=== PATIENT | male | born 1950 | race Caucasian/White ===

== ENCOUNTER → 2019-01-19 09:03 | Outpatient (CLI) | payer OTHER, SELFPAY ==
--- NOTE | 2019-01-19 | DI.RAD.S_ITS ---
PROCEDURE: XR CHEST 2V INDICATIONS: Recurent UTI'S/STAT labs/COUGH TECHNIQUE: 2 views of the chest were acquired. COMPARISON: None. FINDINGS: Surgical changes and devices: None. Lungs and pleura: Lungs are clear. No pleural effusions or pneumothorax. Mediastinum: Mediastinal contours are normal. Heart size is normal. Bones and chest wall: No suspicious bony abnormalities. Soft tissues appear unremarkable. IMPRESSION: No evidence acute pulmonary process. Dictated by: Florin Solis M.D. on 01/19/2019 at 16:59 Approved by: Florin Solis M.D. on 01/19/2019 at 16:59
[2019-01-19 10:32] LABS: BUN Creatinine Ratio 12.2 (6-22); Blood Urea Nitrogen 11 mg/dL (9-20); Estimated Glomerular Filt Rate > 60.0 mL/min (>60)
--- NOTE | 2019-01-19 10:36 | DI.CT.S_ITS ---
PROCEDURE: CT ABDOMEN PELVIS WO/W CON INDICATIONS: Recurent UTI'S TECHNIQUE: Optional 5 mm thick noncontrast images acquired from the diaphragm to the symphysis pubis. After the administration of intravenous contrast, 5 mm thick images acquired from the diaphragm to the symphysis pubis after a 10-minute delay. 2 mm thick coronal and sagittal reformats were then performed of the kidneys and ureters. For radiation dose reduction, the following was used: automated exposure control, adjustment of mA and/or kV according to patient size. COMPARISON: [facility], CT, KIDNEY/ URETER/BLADDER, 03/10/2015, 13:16. FINDINGS: Image quality: Excellent. Lung bases: Lung bases are clear. Heart size is normal. Urinary system: Right kidney: There are approximately 3 stones in the lower pole, the largest of which measures 4 mm. There is no obstructing stone. There is no hydronephrosis. No solid mass. Multiple cysts. Left kidney: 2 mm middle pole stone, 7 mm lower pole stone. No hydronephrosis. No solid renal masses. Multiple cysts. Opacified portions of both ureters demonstrate normal caliber. Enlarged prostate. Bladder wall thickening. No calcified bladder stones. Other solid organs: Liver is normal in size and enhancement. Gallbladder is surgically absent.. Biliary system is non dilated. Pancreas enhances normally. Spleen is normal in size and enhancement. No adrenal nodules. Peritoneum and bowel: Bowel loops demonstrate normal wall thickness and caliber. No free fluid or air. Nodes and vessels: No retroperitoneal or mesenteric adenopathy by size criteria. Aorta and inferior vena cava are normal in size. Multiple pelvic varicosities, right greater than left, of unknown etiology. 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 This was also present on the prior study. Abdominal wall: No ventral hernias. Pelvis: No pathologic free pelvic fluid. No inguinal hernias or adenopathy. Bones: No suspicious bony lesions. No vertebral body compression fractures. IMPRESSION: 1. There are bilateral nonobstructing renal stones. There is no hydronephrosis or hydroureter or ureteral stone. 2. Enlarged prostate, diffuse bladder wall thickening. 3. 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 Dictated by: Florin Solis M.D. on 01/19/2019 at 11:26 Approved by: Florin Solis M.D. on 01/19/2019 at 11:45
== END ==
PROVIDERS: PCP Family Medicine; Visit Provider Student in an Organized Health Care Education/Training Program
DX: N39.0 Urinary tract infection, site not specified (principal); R05 Cough; I86.2 Pelvic varices; N20.0 Calculus of kidney; N28.1 Cyst of kidney, acquired; N40.0 Benign prostatic hyperplasia without lower urinary tract symptoms; Z90.49 Acquired absence of other specified parts of digestive tract
CPT/HCPCS: 36415; 71046; 74178; 82565; 84520; Q9967

== ENCOUNTER → 2019-05-21 14:16 | Outpatient (CLI) | payer MEDICARE, OTHER, SELFPAY ==
--- NOTE | 2019-05-21 14:27 | DI.CT.S_ITS ---
PROCEDURE: CT ABDOMEN PELVIS WO CON INDICATIONS: Calculus of kidney TECHNIQUE: Noncontrast 5 mm thick sections acquired from the diaphragms to the symphysis. 5 mm thick coronal and sagittal reformats were then performed. For radiation dose reduction, the following was used: automated exposure control, adjustment of mA and/or kV according to patient size. COMPARISON: [facility], CT, CT ABDOMEN PELVIS WO/W CON, 01/19/2019, 10:36. FINDINGS: Image quality: Excellent. Lung bases: Lung bases are clear. Heart size is normal. Urinary system: Both kidneys are normal in size. There are bilateral lower third renal collecting system kidney stones, one in each kidney, measuring 2 x 6 mm on the right and 8 mm in maximal diameter on the left, neither of which appear obstructed. At the middle third level of each kidney there is a punctate calculus laterally, one in each kidney, also nonobstructive. No hydronephrosis or perinephric fat stranding. Both ureters appear non-dilated throughout their expected courses. Bladder wall thickness is normal; no calcified bladder stones. The previously identified bladder calculus from CT scanning 01/19/19 has been removed. Other solid organs: Liver is normal in size. Gallbladder is surgically absent. Pancreas is normal in contours. Spleen is normal in size. No adrenal nodules. Peritoneum and bowel: Unenhanced bowel loops demonstrate normal wall thickness and caliber. No free fluid or air. Nodes and vessels: No retroperitoneal or mesenteric adenopathy by size criteria. Aorta and inferior vena cava are normal in caliber. Abdominal wall: No ventral hernias. Pelvis: No free pelvic fluid. No inguinal hernias or adenopathy. Bones: No suspicious bony lesions. No vertebral body compression fractures. IMPRESSION: 1. Successful removal of a bladder calculus, between the [address]. No residual bladder calculus remains. 2. Nonobstructive lower pole bilateral renal calculi, the largest of which measures 8 mm lower third collecting system left kidney. 3. Nonobstructive middle third bilateral renal calculi, each punctate, measuring only approximately 1 mm diameter. No ureteral stone suspected. Dictated by: Prosper Hernandez M.D. on 05/21/2019 at 15:49 Approved by: Prosper Hernandez M.D. on 05/21/2019 at 15:55
== END ==
PROVIDERS: PCP Family Medicine; Referring Provider Urology; Visit Provider Urology
DX: N20.0 Calculus of kidney (principal); Z90.49 Acquired absence of other specified parts of digestive tract
CPT/HCPCS: 74176

== ENCOUNTER 2019-07-12 17:19 | Emergency (ER) | payer MEDICARE, OTHER, SELFPAY ==
[2019-07-12 17:24] VITALS: BP 149/70; PULSE 75; RESP 16; TEMP 36.3; O2SAT 98
--- NOTE | 2019-07-12 17:27 | DI.RAD.S_ITS ---
PROCEDURE: XR FINGER LT MIN 2V INDICATIONS: injury left thumb, fan blade injury TECHNIQUE: AP hand, 2 views of the 1st finger(s) acquired. COMPARISON: None. FINDINGS: Bones: No fractures or dislocations. No suspicious bony lesions. Soft tissues: Soft tissue injury of the thumb and swelling can be seen, with bandaging material. IMPRESSION: Soft tissue swelling is seen, without a definite acute abnormality seen by plain film. If there is point tenderness (or other clinical suspicion for a fracture not seen on these images) then a dedicated CT or a short-term followup plain film series could be considered for further evaluation, as clinically appropriate. Dictated by: Michael Pantoja M.D. on 07/12/2019 at 16:50 Approved by: Michael Pantoja M.D. on 07/12/2019 at 16:51
--- NOTE | 2019-07-12 18:32 | ED.UPPEXIN ---
HPI - Extremity Injury (Upper) General Chief Complaint: Extremity Injury, Upper Stated Complaint: Cut Left Thumb Time Seen by Provider: 07/12/19 18:10 Source: patient Mode of arrival: Ambulatory Limitations: no limitations History of Present Illness HPI narrative: 68M nonsmoker with history of kidney stones presents with the chief complaint of an accidental injury to his left thumb few hours ago. He was working on a project at home and reached in and was lacerated by moving parts inside the machine. He had active bleeding on scene but has full range of motion and sensation.He denies any history of the same and is otherwise well and free of complaint. Patient will receive updated tetanus tonight. complaint: injury to: left Onset (ago): hour(s) Other Extremity Injury: Left: fingers Other injuries: none Handedness: right Place: home Severity: moderate Relieving factors: rest Exacerbating factors: movement of extremity Context: laceration Associated symptoms: denies other symptoms Treatments prior to arrival: bandage Related Data Previous Rx's Medication Instructions Recorded cephalexin [Keflex] 500 mg PO QID #28 cap 07/12/19 Allergies Allergy/AdvReac Type Severity Reaction Status Date / Time No Known Drug Allergies Allergy Verified 07/12/19 17:23 Review of Systems Constitutional Constitutional: Denies chills, Denies fatigue, Denies fever(s), Denies frequent falls, Denies lethargy and Denies weakness Eyes Eyes: Denies change in vision, Denies eye discharge, Denies irritation and Denies loss of vision ENT Ears, Nose, Mouth, and Throat: Denies change in voice, Denies dizziness, Denies neck pain, Denies sore throat and Denies throat swelling Cardiovascular Cardiovascular: Denies chest pain, Denies irregular heart rhythm, Denies lightheadedness, Denies palpitations, Denies dyspnea, Denies dyspnea on exertion and Denies orthopnea Respiratory Respiratory: Denies cough, Denies dyspnea, Denies dyspnea on exertion and Denies wheezing Gastrointestinal Gastrointestinal: Denies abdominal pain, Denies change in bowel habits, Denies diarrhea, Denies nausea and Denies vomiting Genitourinary Genitourinary: Denies hematuria, Denies flank pain, Denies urinary incontinence and Denies urinary urgency Musculoskeletal Musculoskeletal: Denies back pain, Denies muscle weakness, Denies neck pain, Denies numbness and Denies tingling Integumentary/Breasts Skin/Breast: Denies pruritus, Denies erythema, Denies rash and Reports wounds Neurologic Neurologic: Denies behavioral changes, Denies confusion, Denies dizziness, Denies frequent falls, Denies loss of vision, Denies numbness, Denies tingling and Denies weakness Psychiatric Psychiatric: Denies anxiety, Denies behavioral changes, Denies confusion, Denies depression, Denies homicidal ideation and Denies suicidal ideation Endocrine Endocrine: Denies fatigue, Denies flushing and Denies palpitations Hematologic/Lymphatic Hematologic/Lymphatic: Denies easy bruising Allergic/Immunologic Allergic/Immunologic: Denies urticaria, Denies throat swelling and Denies wheezing Patient History Social History Smoking Status: Never smoker Smoking Status: Never smoker alcohol intake frequency: a few times a week Substance Use Type: does not use Exam Narrative Exam Narrative: GEN: AOx3 and in mild distress EYES: Pupils are equal, round, and reactive to light and accommodation. Extraoccular muscles are intact bilaterally. There is no subconjunctival hemorrhage or exudate. CHEST: Lungs are clear to auscultation bilaterally and free of wheezes, rales, or rhonchi. Heart rate is regular rhythm, there are no murmurs, clicks, rubs, or gallops. There is no chest wall tenderness. ABD: Abdomen is soft and nontender. There is no guarding or rebound. Bowel sounds are normal in all 4 quadrants. There is no mass or organomegaly. EXT: Left thumb with irregular laceration, stellate with minimal active bleeding and no obvious tissue loss. Small tip of nail involved but no active bleeding here and no suspicion of nail bed or nail fold injury. Full painless ROM of all extremities with no loss of sensation or strength. SKIN: Warm, pink, and dry. No erythema or rash Initial Vital Signs Initial Vital Signs: Vital Signs Temperature 97.3 F L 07/12/19 17:24 Pulse Rate 75 07/12/19 17:24 Respiratory Rate 16 07/12/19 17:24 Blood Pressure 149/70 H 07/12/19 17:24 Pulse Oximetry 98 07/12/19 17:24 Procedures Laceration Repair Laceration 1: Site: hand Side (If applicable): left Size (cm): 3 Description: stellate, flap, irregular and clean Depth: simple, single layer Pre-repair: wound explored and irrigated extensively Skin layer closed with: nylon Size (cm): 5-0 Number of sutures: 8 Technique: simple, interrupted Subcutaneous layer closed with: vicryl Size: 4-0 Number of sutures: 2 Technique: simple, interrupted Course Orders Ordered: Discontinued Medications Cefazolin Sodium (Keflex 250 Mg Prepack) 1 bottle MISC SEEINSTR ONE Stop: 07/12/19 18:48 Last Admin: 07/12/19 20:51 Dose: 1 bottle Documented by: KADIE Lidocaine/Sodium Bicarbonate (Buffered Lidocaine 10 Ml Syr) 10 ml INJ NOW ONE Stop: 07/12/19 18:47 Last Admin: 07/12/19 20:50 Dose: 10 ml Documented by: KADIE Vital Signs Vital signs: Vital Signs - 8 hr 07/12/19 21:45 Pulse Rate 78 Respiratory Rate 16 Blood Pressure 138/70 Pulse Oximetry 97 MDM - Extremity Injury (Upper) Imaging Data Extremity x-ray #1: Radiologist's Impression: [address] [address] XRay Report Signed Patient: Abilio Castillo LMR#: [id number] : 2Acct:[id number] Age/Sex: 68 / MDate of Service: 07/12/19 Loc: ED Accession Number: [id number] Procedure: XR finger LT min 2V Ordering Provider: Devang Gomes MD PROCEDURE: XR FINGER LT MIN 2V INDICATIONS: injury left thumb, fan blade injury TECHNIQUE: AP hand, 2 views of the 1st finger(s) acquired. COMPARISON: None. FINDINGS: Bones: No fractures or dislocations. No suspicious bony lesions. Soft tissues: Soft tissue injury of the thumb and swelling can be seen, with bandaging material. IMPRESSION: Soft tissue swelling is seen, without a definite acute abnormality seen by plain film. If there is point tenderness (or other clinical suspicion for a fracture not seen on these images) then a dedicated CT or a short-term followup plain film series could be considered for further evaluation, as clinically appropriate. Dictated by: Michael Pantoja M.D. on 07/12/2019 at 16:50 Approved by: Michael Pantoja M.D. on 07/12/2019 at 16:51 Discharge Plan Departure Patient Disposition: Home Clinical Impression: Laceration of left thumb Qualifiers: Encounter type: initial encounter Damage to nail status: with damage Foreign body presence: without foreign body Qualified Code(s): S61.112A - Laceration without foreign body of left thumb with damage to nail, initial encounter Discharge Date/Time: 07/12/19 21:50 Instructions: DI for Laceration Repair -- Finger Activity Restrictions/Additional Instructions: Please keep the wound clean and dry to the best of your ability. Please monitor for signs of infection such as redness to the skin or increasing pain. Have the sutures removed by your doctor in about 7 days. If you are unable to get into your doctor, we would be happy to remove the sutures in that same timeframe. Prescriptions: New cephalexin [Keflex] 500 mg capsule 500 mg PO QID Qty: 28 RF: 0 Referrals: Ilan Kent MD [Primary Care Provider] -
[2019-07-12] MEDS: LIDO 1%/SOD BICARB 8.4% (10ML) 10 ML SYRINGE INJ (20:50)
[2019-07-12] MEDS: cephALEXin 250 MG PREPACK 1 BOTTLE MISC (20:51)
[2019-07-12 21:45] VITALS: BP 138/70; PULSE 78; RESP 16; O2SAT 97
== END 2019-07-12 21:50 | disposition home or self-care (01) ==
PROVIDERS: Emergency Provider Emergency Medicine; PCP Family Medicine
DX: S61.112A Laceration without foreign body of left thumb with damage to nail, initial encounter (principal); W31.9XXA Contact with unspecified machinery, initial encounter
CPT/HCPCS: 12002; 73140; 99283

== ENCOUNTER → 2021-03-29 16:29 | Outpatient (CLI) | payer MEDICARE, OTHER, SELFPAY ==
--- NOTE | 2021-03-29 | DI.MRI.S_ITS ---
PROCEDURE: MR SHOULDER RT WO CON INDICATIONS: ATROPHY OF DELTOID MUSCLE TECHNIQUE: Noncontrast oblique coronal T2 fast spin echo with fat saturation, oblique sagittal T1 spin echo and T2 fast spin echo with fat saturation, axial T1 spin echo and T2 fast spin echo with fat saturation through the shoulder. COMPARISON: None. FINDINGS: Image quality: Excellent. Rotator cuff: There is mild T2 signal elevation throughout the supraspinatus and infraspinatus tendons at the humeral insertion sites, indicating tendinopathy. Superimposed low-grade partial-thickness intrasubstance tearing of the anterior, mid, and posterior supraspinatus tendon at the humeral insertion site. Subscapularis, infraspinatus, and teres minor tendons are intact. No rotator cuff atrophy. Bones and bursae: No bone marrow contusions or fractures. Moderate acromioclavicular joint degeneration. The acromion demonstrates conventional anatomy, without an os acromiale. Moderate subacromial-subdeltoid or subcoracoid bursal fluid is present. Capsule and soft tissues: Labrum demonstrates multifocal regions of high T2 signal intensity within the anteroinferior labrum as well as the posterior inferior labrum. The long head of the biceps tendon demonstrates normal location and morphology. The rotator interval appears normal, without fibrosis. The coracohumeral ligament is normal in thickness. IMPRESSION: 1. Supraspinatus and infraspinatus tendinopathy. Superimposed low-grade partial-thickness tearing of the supraspinatus. No full-thickness rotator cuff tear. 2. Acromioclavicular joint osteoarthritis. 3. Subacromial bursitis. 4. Glenoid labral tearing. Dictated by: Aman Bhagat M.D. on 03/30/2021 at 8:25 Approved by: Aman Bhagat M.D. on 03/30/2021 at 8:27
== END ==
PROVIDERS: PCP Family Medicine; Referring Provider Family Medicine; Visit Provider Family Medicine
DX: M62.519 Muscle wasting and atrophy, not elsewhere classified, unspecified shoulder (principal); M75.111 Incomplete rotator cuff tear or rupture of right shoulder, not specified as traumatic; M75.51 Bursitis of right shoulder; M19.011 Primary osteoarthritis, right shoulder; S43.491A Other sprain of right shoulder joint, initial encounter
CPT/HCPCS: 73221

== ENCOUNTER → 2021-05-16 10:00 | Outpatient (CLI) | payer MEDICARE, OTHER, SELFPAY ==
--- NOTE | 2021-05-16 | DI.MRI.S_ITS ---
PROCEDURE: MR CERVICAL SPINE WO CON INDICATIONS: Cervicalgia TECHNIQUE: Noncontrast sagittal T1 spin echo and T2 fast spin echo, sagittal STIR, foraminal oblique sagittal T2 fast spin echo, and axial gradient echo or T2 fast spin echo through the cervical spine. COMPARISON: None. FINDINGS: Image quality: Excellent. Alignment and Curvature: There is normal bony alignment. Bone Marrow: Marrow demonstrates normal overall signal. Spinal Cord: Visualized spinal cord has normal size and signal. No cerebellar tonsillar herniation. Paraspinous Soft Tissues: No paravertebral masses. Prevertebral soft tissues are normal in thickness. C2-C3: No canal stenosis or foraminal stenosis. C3-C4: Disc bulge. No canal stenosis. Right uncovertebral joint hypertrophy with mild right foraminal narrowing. C4-C5: Disc bulge. No canal stenosis or foraminal stenosis. C5-C6: No canal stenosis. Left uncovertebral joint hypertrophy with mild left foraminal narrowing. C6-C7: Mild disc height loss. Diffuse posterior disc bulge. Central canal measures 1.0 cm. There is a relatively broad-based right foraminal disc protrusion which impinges on the right C7 nerve root in the foramen. The protrusion is high signal, and may be relatively acute. C7-T1: No canal stenosis or foraminal stenosis. IMPRESSION: 1. There is a relatively broad-based right foraminal disc protrusion at C6-C7, which may be acute. It results in severe foraminal narrowing and right C7 nerve root impingement. 2. Mild cervical spondylitic change. Dictated by: Florin Solis M.D. on 05/16/2021 at 11:48 Approved by: Florin Solis M.D. on 05/16/2021 at 11:54
== END ==
PROVIDERS: PCP Family Medicine; Referring Provider Family Medicine; Visit Provider Family Medicine
DX: M50.223 Other cervical disc displacement at C6-C7 level (principal)
CPT/HCPCS: 72141

== ENCOUNTER 2024-03-06 18:42 | Emergency (ER) | payer MEDICARE, OTHER, SELFPAY ==
[2024-03-06 18:50] VITALS: BP 148/67; PULSE 66; RESP 16; TEMP 36.2; O2SAT 96; BMI 25.7
[2024-03-06 19:05] LABS: Appearance Urine UA CLEAR; Bilirubin Urine UA NEGATIVE (NEGATIVE); Color Urine UA YELLOW; Glucose Urine UA NEGATIVE (Negative); Ketones Urine UA TRACE (NEGATIVE); Leukocyte Esterase Urine UA NEGATIVE (NEGATIVE); Nitrite Urine UA NEGATIVE (Negative); Occult Blood Urine UA 1+ (Negative); Protein Urine UA TRACE (Negative); Specific Gravity Urine UA 1.025 (1.000-1.035); pH Urine UA 6.5 (4.5-8.0)
[2024-03-06 19:21] LABS: Amorphous Sediment Urine 1+; Bacteria Urine Few (2-10); Calcium Oxalate Crystals Urine Many; Mucus Urine 1+ (Negative); RBC Urine 1-5/HPF (0-5/HPF); Squamous Epithelial Cell Urine None Seen (0-5/HPF); Urine Volume 10mL (spun); WBC Urine 0-1/HPF (0-5/HPF)
[2024-03-06 19:22] LABS: Culture Indicated Urine Cult Not Indicated
--- NOTE | 2024-03-06 19:56 | ED_ITS ---
HPI - Male Genitourinary General Chief complaint: Urogenital-Male Stated complaint: sent by PCP, abn labs, kidney Time Seen by Provider: 03/06/24 19:01 History of Present Illness HPI Narrative: 73yoM with PMH kidney stones presents for aching RLQ pain and nausea since 11am today. Saw his PCP on [facility], who told him he had no hernias and had trace blood in his urine. He was referred to the ED for evaluation of possible kidney stones. Given toradol in clinic before coming to the ED. Patient states that this feels different from when he last had a kidney stone. Related Data Previous Rx's Medication Instructions Recorded cephalexin 500 mg capsule (Keflex) 500 mg PO QID #28 caps 07/12/19 ondansetron 4 mg disintegrating 4 mg PO Q8H PRN nausea and 03/06/24 tablet vomiting #30 tabs Allergies Allergy/AdvReac Type Severity Reaction Status Date / Time No Known Drug Allergies Allergy Verified 07/12/19 17:23 Patient History Social History Smoking Status: Never smoker Smoking Status: Never smoker alcohol intake frequency: a few times a week Exam Initial Vital Signs Initial Vital Signs: Vital Signs Temperature 97.1 F L 03/06/24 18:50 Pulse Rate 66 03/06/24 18:50 Respiratory Rate 16 03/06/24 18:50 Blood Pressure 148/67 H 03/06/24 18:50 Pulse Oximetry 96 03/06/24 18:50 Oxygen Delivery Method Room Air 03/06/24 18:50 Const: Awake, alert, no acute distress, nontoxic appearing Cardiac: regular rate, regular rhythm RESP: unlabored, conversational without dyspnea GI: Soft,minimal RLQ tenderness to deep palpation without rebound or guarding Skin: Warm, Dry, intact, no rashes Neuro: AO x3, CN II-XII grossly intact, moves all extremities Course Orders Ordered: ED Orders 03/06/24 18:56 Urinalysis and Microscopic Stat 03/06/24 19:56 CT kidney ureter bladder (KUB) Stat 03/06/24 20:20 CBC Auto Diff [Complete Blood Count AUTO DIFF] Stat CMP [Comprehensive Metabolic Panel] Stat Discontinued Medications Morphine Sulfate (Morphine 4 Mg/Ml Inj) 4 mg IV NOW ONE Stop: 03/06/24 19:57 Last Admin: 03/06/24 20:12 Dose: 4 mg Documented By: PAT Ondansetron HCl (Ondansetron 4 Mg/2 Ml Inj) 4 mg IV NOW ONE Stop: 03/06/24 19:57 Last Admin: 03/06/24 20:12 Dose: 4 mg Documented By: PAT Vital Signs Vital signs: Vital Signs - 8 hr 03/06/24 18:50 03/06/24 20:15 03/06/24 20:16 Temperature 97.1 F L Pulse Rate 66 65 Respiratory Rate 16 18 Blood Pressure 148/67 H 139/75 Pulse Oximetry 96 97 Oxygen Delivery Method Room Air 03/06/24 20:22 03/06/24 21:18 Temperature 98.4 F Pulse Rate 62 66 Respiratory Rate 18 18 Blood Pressure 139/75 140/70 Pulse Oximetry 96 96 Oxygen Delivery Method Room Air Room Air MDM - Male Genitourinary Lab Data 03/06/24 20:20 03/06/24 20:20 Labs: Lab Results 03/06/24 03/06/24 Range/Units 18:56 20:20 WBC 5.8 (4.5-11.0) X10^3/uL RBC 4.80 (4.5-5.9) X10^6/uL Hgb 14.9 (13.5-17.5) g/dL Hct 43.6 (41-53) % MCV 90.8 (80-100) fL MCH 31.1 (26-34) PG MCHC 34.2 (30-36) % RDW 14.0 (11.6-14.8) % Plt Count 98 L (150-400) X10^3/uL Neut % (Auto) 66.0 (50-75) % Lymph % (Auto) 25.9 (25-40) % [place] % (Auto) 6.7 (3-14) % Eos % (Auto) 1.0 L (2-4) % Baso % (Auto) 0.4 (0-2) % Neut # (Auto) 3800 (7807-1994) /uL Lymph # (Auto) 1500 (6882-7702) /uL [place] # (Auto) 400 (0-900) /uL Eos # (Auto) 100 (0-450) /uL Baso # (Auto) 0 (0-100) /uL Sodium 133 L (137-145) mmol/L Potassium 4.4 (3.4-5.1) mmol/L Chloride 106 (98-107) mmol/L Carbon Dioxide 24 (22-32) mmol/L BUN 20 (9-20) mg/dL Creatinine 0.97 (0.66-1.25) mg/dL Estimated GFR > 60 (>60) mL/min BUN/Creatinine Ratio 20.6 (6-22) Glucose 112 H (80-110) mg/dL Calcium 9.3 (8.4-10.2) mg/dL Total Bilirubin 0.6 (0.2-1.3) mg/dL AST 30 (17-59) IU/L ALT 26 (<50) IU/L Alkaline Phosphatase 45 (38-126) U/L Total Protein 6.8 (6.3-8.2) g/dL Albumin 3.8 (3.5-5.0) g/dL Globulin 3.0 (1.7-4.1) g/dL Albumin/Globulin Ratio 1.3 (1.0-2.8) Urine Color Yellow Urine Appearance Clear Urine pH 6.5 (4.5-8.0) Ur Specific [place] 1.025 (1.000-1.035) Urine Protein Trace H (Negative) Urine Glucose (UA) Negative (Negative) g/dL Urine Ketones Trace H (NEGATIVE) Urine Occult Blood 1+ H (Negative) Urine Nitrate Negative (Negative) Urine Bilirubin Negative (NEGATIVE) Urine Urobilinogen 1.0 (0.2) E.U./dL Ur Leukocyte Esterase Negative (NEGATIVE) Urine RBC 1-5/hpf (0-5/HPF) Urine WBC 0-1/hpf (0-5/HPF) Ur Squamous Epith Cells None seen (0-5/HPF) Calcium Oxalate Crystal Many H Amorphous Sediment 1+ Urine Bacteria Few (2-10) H (None) Urine Mucus 1+ H (Negative) Ur Culture Indicated? Cult not indicated Vol Urine Centrifuged 10ml (spun) Imaging Data CT scan - abdomen/pelvis: My Impression: PROCEDURE: CT KIDNEY URETER BLADDER (KUB) INDICATIONS: RLQ PAIN, HX STONES TECHNIQUE: Axial sections were acquired from the lung bases to the pubic symphysis. Coronal and sagittal reformats were performed. For radiation dose reduction, the following was used: automated exposure control, adjustment of mA and/or kV according to patient size. COMPARISON: [facility], CT, KIDNEY/ URETER/BLADDER, 03/10/2015, 13:16. FINDINGS: Image quality: Diagnostic. Lower Chest: No significant findings. URINARY: Right Kidney: Small burden nonobstructing nephrolithiasis, largest measuring 5 mm. No hydronephrosis. Renal cysts are present. Right Ureter: No hydroureter. Left Kidney: Small burden nonobstructing nephrolithiasis, largest measuring 7-8 mm (series 2, image 67). Left Ureter: No hydroureter. Bladder: Large burden small bladder stones. ABDOMEN: Liver: No contour-deforming solid mass. Gallbladder: Absent. Biliary ducts: No biliary dilation. Pancreas: No ductal dilation. Spleen: Size is within normal limits. Adrenal Glands: No adrenal nodules. Stomach and Bowel: Normal colonic caliber, without significant wall thickening. Normal appendix. Moderate right-sided colonic stool load. Colonic diverticulosis without evidence of diverticulitis. Peritoneum: No abnormal intraperitoneal fluid. No free air. Ventral Wall: No hernia. Abdominal Nodes: No enlarged retroperitoneal or mesenteric lymph nodes. Vessels: Aorta and inferior vena cava are normal in size. Dilated right pelvic venous varicosities. PELVIS: Pelvic Organs: Unremarkable. Pelvic Nodes: Unremarkable. Miscellaneous: No inguinal hernias are seen. Bones: Degenerative disc disease of the lumbar spine. IMPRESSION: No obstructing stones or hydronephrosis. Small burden of bilateral nonobstructing nephrolithiasis. Large burden of small bladder stones. 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 Normal appendix. Moderate right-sided colonic stool load. Dictated by: Liang Whaley M.D. on 03/06/2024 at 20:34 Approved by: Liang Whaley M.D. on 03/06/2024 at 20:39 MDM Narrative Medical decision making narrative: well-appearing patient with right-sided abdominal pain, concerned for kidney stones. Abdominal exam overall fairly benign, there is minimal right lower quadrant tenderness to deep palpation without rebound or guarding. No CVA tenderness. Laboratory work, CT imaging ordered. Urinalysis positive for calcium oxalate, trace occult blood, minimal RBCs. Laboratory work otherwise unremarkable with normal kidney function, normal electrolytes, normal liver enzymes. CT of the abdomen and pelvis without contrast shows large amount of small bladder stones, possible pelvic congestion syndrome, normal appendix, moderate right-sided colonic stool load. Patient informed of imaging and lab results. Recommended stool softener to decrease stool burden. Patient states that he has had bladder stones removed previously by urology in [place]. He was advised to follow up w/his PCP and urologist if he continues to experience these pains. Nausea medication sent to pharmacy of choice. Discharge Plan Departure Patient Disposition: Home Clinical Impression: Abdominal pain Instructions: DI for Abdominal Pain-Adult Activity Restrictions/Additional Instructions: Your laboratory work today is normal. Your urine has trace red blood cells present, but no signs of infection. Your CT scan today showed that you have some bladder stones, evidence of right-sided constipation, and a few small stones inside of your kidney, but no blocking kidney stones. Take a daily stool softener such as MiraLax for constipation. Follow up with your urologist and primary care doctor. Prescriptions: New ondansetron 4 mg tablet,disintegrating 4 mg PO Q8H PRN (Reason: nausea and vomiting) Qty: 30 0RF No Action cephalexin [Keflex] 500 mg capsule 500 mg PO QID Qty: 28 0RF Referrals: Nereida Mccall MD [Primary Care Provider] - Stand Alone Forms: Patient Portal/API/Survey
[2024-03-06] MEDS: MORPHINE 4 MG/ML INJ IV (20:12)
[2024-03-06] MEDS: ONDANSETRON 4 MG/2 ML INJ IV (20:12)
[2024-03-06 20:15] VITALS: BP 139/75
[2024-03-06 20:16] VITALS: PULSE 65; RESP 18; O2SAT 97
[2024-03-06 20:22] VITALS: BP 139/75; PULSE 62; RESP 18; O2SAT 96
[2024-03-06 20:30] LABS: Add Manual Diff / Slide Review NO; Basophils Absolute Auto 0 /uL (0-100); Basophils Percent Auto 0.4 % (0-2); Eosinophils Absolute Auto 100 /uL (0-450); Hematocrit 43.6 % (41-53); Hemoglobin 14.9 g/dL (13.5-17.5); Lymphocytes Absolute Auto 1500 /uL (1100-4500); Lymphocytes Percent Auto 25.9 % (25-40); Mean Corpuscular HGB Conc 34.2 % (30-36); Mean Corpuscular Hemoglobin 31.1 PG (26-34); Mean Corpuscular Volume 90.8 fL (80-100); Monocytes Absolute Auto 400 /uL (0-900); Monocytes Percent Auto 6.7 % (3-14); Neutrophils Absolute Auto 3800 /uL (1500-7000); Platelet Count 98 X10^3/uL (150-400); White Blood Cell Count 5.8 X10^3/uL (4.5-11.0)
[2024-03-06 20:44] LABS: Alanine Aminotransferase 26 IU/L (<50); Albumin 3.8 g/dL (3.5-5.0); Albumin Globulin Ratio 1.3 (1.0-2.8); Alkaline Phosphatase 45 U/L (38-126); Aspartate Aminotransferase 30 IU/L (17-59); BUN Creatinine Ratio 20.6 (6-22); Bilirubin Total 0.6 mg/dL (0.2-1.3); Blood Urea Nitrogen 20 mg/dL (9-20); Calcium 9.3 mg/dL (8.4-10.2); Carbon Dioxide 24 mmol/L (22-32); Chloride 106 mmol/L (98-107); Estimated Glomerular Filt Rate > 60 mL/min (>60); Glucose 112 mg/dL (80-110); HEMOLYSIS 18 (0-50); Potassium 4.4 mmol/L (3.4-5.1); Sodium 133 mmol/L (137-145); Total Protein 6.8 g/dL (6.3-8.2)
[2024-03-06 21:18] VITALS: BP 140/70; PULSE 66; RESP 18; TEMP 36.9; O2SAT 96
== END 2024-03-06 21:19 | disposition home or self-care (01) ==
PROVIDERS: Emergency Provider Emergency Medicine; PCP Family Medicine
DX: R10.31 Right lower quadrant pain (principal); R11.0 Nausea
CPT/HCPCS: 36415; 74176; 80053; 81001; 85025; 96374; 96375; 99284; J2270; J2405